=== PATIENT | male | born 1965 | race Two or more races ===

== ENCOUNTER 2019-01-18 08:28 | Emergency (ER) | payer MEDICAID ==
[~2019-01-18] VITALS: Ht 188 cm; Wt 120.2 kg
[2019-01-18] MEDS ORDERED: Ketorolac 30mg Inj IV ONE (08:45)
[2019-01-18 08:59] VITALS: BP 132/89
--- NOTE | 2019-01-18 09:01 | NUR ---
ED Nurse Note:pt. came from home with sharp right flank pain started this morning, pt. is A/Ox4, ambulatory, blood and urine sent to labs, given pain med, pt. went to CT scan
[2019-01-18 09:10] LABS: APPEARANCE,URINE SLIGHTLY CLOUDY; BILIRUBIN, URINE NEGATIVE (NEGATIVE); COLOR,URINE PALE YELLOW; GLUCOSE, URINE (UA) NEGATIVE (NEGATIVE); KETONES,URINE NEGATIVE (NEGATIVE); LEUKOCYTE ESTERASE ,URINE 1+ (NEGATIVE); NITRITE,URINE NEGATIVE (NEGATIVE); PH,URINE 9 (4.5-8.0); PROTEIN,URINE NEGATIVE (NEGATIVE); UROBILINOGEN,URINE NORMAL MG/DL (0.0-1.0)
[2019-01-18 09:11] LABS: BASOPHILS % (AUTO) 2.3 % (0.0-2.0); HEMATOCRIT 43.5 % (42.0-52.0); HEMOGLOBIN 14.4 G/DL (14.2-18.0); LYMPHOCYTES % (AUTO) 40.3 % (20.0-45.0); MEAN CORPUSCULAR VOLUME 88 FL (80-99); MONOCYTES % (AUTO) 9.1 % (1.0-10.0); NEUTROPHILS % (AUTO) 46.4 % (45.0-75.0); PLATELET COUNT 260 K/UL (150-450); RED BLOOD COUNT 4.92 M/UL (4.70-6.10); RED CELL DISTRIBUTION WIDTH 12.2 % (11.6-14.8); WHITE BLOOD COUNT 3.8 K/UL (4.8-10.8)
[2019-01-18 09:18] LABS: ANION GAP 7 mmol/L (5-15); BLOOD UREA NITROGEN 11 mg/dL (7-18); CALCIUM 9.4 MG/DL (8.5-10.1); CARBON DIOXIDE 30 MMOL/L (21-32); CHLORIDE 104 MMOL/L (98-107); CREATININE 1.4 MG/DL (0.55-1.30); POTASSIUM 3.9 MMOL/L (3.5-5.1); SODIUM 141 MMOL/L (136-145)
[2019-01-18 09:28] LABS: ALANINE AMINOTRANSFERASE 24 U/L (12-78); ALBUMIN 3.9 G/DL (3.4-5.0); ALBUMIN/GLOBULIN RATIO 1.1 (1.0-2.7); ALKALINE PHOSPHATASE 44 U/L (46-116); ASPARTATE AMINO TRANSFERASE 14 U/L (15-37); BILIRUBIN,TOTAL 0.6 MG/DL (0.2-1.0)
--- NOTE | 2019-01-18 09:55 | Diagnostic Imaging Report ---
Indication: Right flank pain Technique: Noncontrast CT of the abdomen and pelvis utilizing automated exposure control. Axial, sagittal and coronal reformats presented. CT dose: Total DLP 1046.4 mGycm; CTDI vol 18.84 mGy Comparison: None Findings: Please note that evaluation of the abdominal and pelvic viscera and vascular structures is limited without the use of intravenous and oral contrast. Within these limitations the following observations are made: Minimal subsegmental atelectasis or scarring is noted in the lingula. There is a 5 mm nodule in the right middle lobe. Size within normal limits. There is no pericardial effusion. Noncontrast evaluation of the liver, gallbladder, spleen, adrenal glands and pancreas is unremarkable. The kidneys are symmetric in size. There is no urinary tract stone or hydronephrosis bilaterally. There is very subtle nonspecific bilateral perinephric stranding. Bladder is unremarkable in appearance. Osseous and seminal vesicles unremarkable in appearance. Imaged portions of the penis unremarkable. There is no free intraperitoneal air or fluid. There is no evidence of bowel obstruction or definite inflammatory changes in the mesentery. There is colonic diverticulosis without evidence to suggest acute diverticulitis. No pericolonic inflammatory changes identified. The appendix is normal in caliber and contains some foci of air in the lumen. No periappendiceal inflammatory changes noted. Abdominal aorta is normal in caliber with a few scattered atherosclerotic calcifications. There is no pathologically enlarged lymphadenopathy. There is a small fat-containing umbilical hernia. There are mild degenerative changes of the spine and bilateral hips. There is a well-defined lucent lesion in the proximal shaft of the right femur with narrow zone of transition. The margins are clearly defined and there is no aggressive periosteal reaction. This most likely represents a benign bone tumor. Correlation with prior studies is recommended to assess stability. Alternatively follow-up radiograph recommended. No acute osseous abnormality identified. IMPRESSION: Limited exam without intravenous and oral contrast. Within these limitations: No urinary tract stone or hydronephrosis as questioned clinically. Some very subtle perinephric stranding is seen bilaterally. Recommend correlation with urinalysis to exclude urinary tract infection although findings may also be chronic and nonspecific. Colonic diverticulosis without evidence to suggest an acute diverticulitis. No evidence of bowel obstruction or definite inflammatory changes within the mesentery. Normal appendix. Small fat-containing umbilical hernia. Well-defined lucent lesion in the proximal femur with imaging characteristics suggestive of a benign bone lesion (for example simple bone cyst). Comparison with prior exams is recommended to assess stability. Alternatively, follow-up exam can be obtained if no priors available for comparison. 5 mm nodule in the right middle lobe. No routine imaging follow-up is recommended if patient is considered low risk for lung cancer. If patient is considered high risk then consider follow-up CT in [address] scanner at [facility] is accredited by the [employer] and the scans are performed using protocols designed to limit radiation exposure to as low as reasonably achievable to attain images of sufficient resolution adequate for diagnostic evaluation.
--- NOTE | 2019-01-18 10:55 | Emergency Room Report ---
History of Present Illness General Chief Complaint: Abdominal Pain Source: Patient Present Illness HPI The patient states that around 2:30 this morning he woke up needing to urinate. He states he felt some discomfort in his abdomen and then did go and urinate. He states that this morning around 9 AM he got up and then sneezed. He states that right after he sneezed he felt pain in the right lateral upper abdomen. The location is very specific tender to palpation. He denies recent illness. He denies dysuria or hematuria. He denies fever or chills. He denies nausea or vomiting. He has no other complaints. Allergies: Coded Allergies: No Known Allergies (Unverified , 01/18/19) Patient History Past Medical History: none, see triage record Past Surgical History: none Social History: Reports: alcohol use; Denies: smoking, drug use Reviewed Nursing Documentation: PMH: Agreed; PSxH: Agreed Nursing Documentation-PMH Past Medical History: No Stated History Review of Systems All Other Systems: negative except mentioned in HPI Physical Exam Vital Signs Date Time Temp Pulse Resp B/P (MAP) Pulse Ox O2 Delivery O2 Flow Rate FiO2 01/18/19 08:31 97.9 78 16 132/89 96 Room Air Sp02 EP Interpretation: reviewed, normal General Appearance: no apparent distress, alert, GCS 15, non-toxic Head: normocephalic, atraumatic Eyes: bilateral eye normal inspection, bilateral eye PERRL ENT: hearing grossly normal, normal pharynx, no angioedema, normal voice Neck: full range of motion, supple/symm/no masses Respiratory: chest non-tender, lungs clear, normal breath sounds, no respiratory distress, no retraction, no accessory muscle use, speaking full sentences Cardiovascular #1: regular rate, rhythm, no edema Gastrointestinal: normal bowel sounds, soft, non-distended, no guarding, no rebound, tenderness - Localized TTP in the R. abdomen primarily in the soft tissue/musculature. Rectal: deferred Genitourinary: normal inspection, no CVA tenderness Musculoskeletal: back normal, gait/station normal, normal range of motion, non- tender Neurologic: alert, oriented x3, responsive, motor strength/tone normal, sensory intact, speech normal Psychiatric: judgement/insight normal, memory normal, mood/affect normal, no suicidal/homicidal ideation Skin: normal color, no rash, warm/dry, well hydrated Medical Decision Making Diagnostic Impression: Primary Impression: Abdominal muscle strain ER Course This patient has findings on exam consistent with abdominal muscle strain. Given the other symptoms he had earlier in the morning with urination and that it is located in his abdomen, I did obtain a CT of the abdomen and pelvis. This was unremarkable. Also reassuring was normal laboratory workup to include CBC, CMP and urinalysis. At this time, I do not suspect an emergency medical condition. The patient is given close return precautions and follow up instructions. Laboratory Tests Test 01/18/19 09:00 White Blood Count 3.8 K/UL (4.8-10.8) L Red Blood Count 4.92 M/UL (4.70-6.10) Hemoglobin 14.4 G/DL (14.2-18.0) Hematocrit 43.5 % (42.0-52.0) Mean Corpuscular Volume 88 FL (80-99) Mean Corpuscular Hemoglobin 29.2 PG (27.0-31.0) Mean Corpuscular Hemoglobin Concent 33.0 G/DL (32.0-36.0) Red Cell Distribution Width 12.2 % (11.6-14.8) Platelet Count 260 K/UL (150-450) Mean Platelet Volume 6.0 FL (6.5-10.1) L Neutrophils (%) (Auto) 46.4 % (45.0-75.0) Lymphocytes (%) (Auto) 40.3 % (20.0-45.0) Monocytes (%) (Auto) 9.1 % (1.0-10.0) Eosinophils (%) (Auto) 2.0 % (0.0-3.0) Basophils (%) (Auto) 2.3 % (0.0-2.0) H Urine Color Pale yellow Urine Appearance Slightly cloudy Urine pH 9 (4.5-8.0) Urine Specific [place] 1.015 (1.005-1.035) Urine Protein Negative (NEGATIVE) Urine Glucose (UA) Negative (NEGATIVE) Urine Ketones Negative (NEGATIVE) Urine Blood Negative (NEGATIVE) Urine Nitrite Negative (NEGATIVE) Urine Bilirubin Negative (NEGATIVE) Urine Urobilinogen Normal MG/DL (0.0-1.0) Urine Leukocyte Esterase 1+ (NEGATIVE) H Urine RBC 0-2 /HPF (0 - 0) H Urine WBC 0-2 /HPF (0 - 0) Urine Squamous Epithelial Cells Occasional /LPF Urine Amorphous Sediment Moderate /LPF (NONE) H Urine Bacteria Few /HPF (NONE) Sodium Level 141 MMOL/L (136-145) Potassium Level 3.9 MMOL/L (3.5-5.1) Chloride Level 104 MMOL/L (98-107) Carbon Dioxide Level 30 MMOL/L (21-32) Anion Gap 7 mmol/L (5-15) Blood Urea Nitrogen 11 mg/dL (7-18) Creatinine 1.4 MG/DL (0.55-1.30) H Estimate Glomerular Filtration Rate 53.4 mL/min (>60) Glucose Level 106 MG/DL (74-106) Calcium Level 9.4 MG/DL (8.5-10.1) Total Bilirubin 0.6 MG/DL (0.2-1.0) Aspartate Amino Transferase (AST) 14 U/L (15-37) L Alanine Aminotransferase (ALT) 24 U/L (12-78) Alkaline Phosphatase 44 U/L (46-116) L Total Protein 7.5 G/DL (6.4-8.2) Albumin 3.9 G/DL (3.4-5.0) Globulin 3.6 g/dL Albumin/Globulin Ratio 1.1 (1.0-2.7) Lipase 64 U/L (73-393) L Urine Opiates Screen Negative (NEGATIVE) Urine Barbiturates Screen Negative (NEGATIVE) Phencyclidine (PCP) Screen Negative (NEGATIVE) Urine Amphetamines Screen Negative (NEGATIVE) Urine Benzodiazepines Screen Negative (NEGATIVE) Urine Cocaine Screen Negative (NEGATIVE) Urine Marijuana (THC) Screen Positive (NEGATIVE) H Chest X-Ray Diagnostic Results Chest X-Ray Diagnostic Results : Chest X-Ray Ordered: Yes # of Views/Limited/Complete: 1 View Indication: Other EP Interpretation: Yes Interpretation: no consolidation, no effusion, no pneumothorax, no acute cardiopulmonary disease Impression: No acute disease Electronically Signed by: Ofelia Goldman DO CT/MRI/US Diagnostic Results CT/MRI/US Diagnostic Results : Imaging Test Ordered: CT abd/pelvis Impression Limited exam without intravenous and oral contrast. Within these limitations: No urinary tract stone or hydronephrosis as questioned clinically. Some very subtle perinephric stranding is seen bilaterally. Recommend correlation with urinalysis to exclude urinary tract infection although findings may also be chronic and nonspecific. Colonic diverticulosis without evidence to suggest an acute diverticulitis. No evidence of bowel obstruction or definite inflammatory changes within the mesentery. Normal appendix. Small fat-containing umbilical hernia. Well-defined lucent lesion in the proximal femur with imaging characteristics suggestive of a benign bone lesion (for example simple bone cyst). Comparison with prior exams is recommended to assess stability. Alternatively, follow-up exam can be obtained if no priors available for comparison. 5 mm nodule in the right middle lobe. No routine imaging follow-up is recommended if patient is considered low risk for lung cancer. If patient is considered high risk then consider follow-up CT in 12 months. Last Vital Signs Date Time Temp Pulse Resp B/P (MAP) Pulse Ox O2 Delivery O2 Flow Rate FiO2 01/18/19 09:54 97.9 01/18/19 08:59 78 16 Room Air 01/18/19 08:59 132/89 96 Status: improved Disposition: HOME, SELF-CARE Condition: Improved Scripts No Active Prescriptions or Reported Meds Referrals: NON PHYSICIAN (PCP) Patient Instructions: Abdominal Pain, Adult Ofelia Goldman DO Jan 18, 2019 10:55
[2019-01-18] MEDS ORDERED: LIDODERM700 M1 TOPIC (11:33)
[2019-01-18] MEDS ORDERED: IBUPROFEN800 MG ORAL (11:33)
--- NOTE | 2019-01-18 11:41 | Diagnostic Imaging Report ---
Indication: Chest pain Technique: XRAY Chest 1v Comparison: None Findings: Heart size and mediastinal contours are within normal limits for AP technique. There is no focal consolidation, pneumothorax or pleural effusion. Osseous structures demonstrate no acute abnormality. Impression: No radiographic evidence of acute cardiopulmonary disease.
[2019-01-18 11:46] VITALS: BP 139/89
[2019-01-18 12:02] VITALS: BP 139/89
--- NOTE | 2019-01-18 12:04 | NUR ---
ER DISCHARGE NOTE: Patient is cleared to be discharged per ERMD, pt is aox4, on room air, with stable vital signs. pt was given dc and prescription instructions, pt was able to verbalize understanding, pt id band and iv site removed without complications. pt is able to ambulate with steady gait. pt took all belongings.
== END 2019-01-18 12:04 | disposition home or self-care (01) ==
LOC: EMR 09:04
DX: S39.011A Strain of muscle, fascia and tendon of abdomen, initial encounter (principal); X58.XXXA Exposure to other specified factors, initial encounter; Y92.9 Unspecified place or not applicable
CPT/HCPCS: 36415; 71045; 74176; 80053; 80307; 81003; 83690; 85025; 96374; 99284; J1885